=== PATIENT | female | born 1975 | race Caucasian/White ===

== ENCOUNTER → 2018-11-16 14:29 | Outpatient (CLI) | payer OTHER, MEDICAID, SELFPAY ==
--- NOTE | 2018-11-16 | DI.MRI.S_ITS ---
PROCEDURE: MR LUMBAR SPINE WO CON INDICATIONS: LUMBAR PAIN WITH SCIATICA TECHNIQUE: Noncontrast sagittal T1 spin echo and T2 fast echo, sagittal STIR, axial T1 and T2 fast spin echo through the lumbar spine. In cases with scoliosis, additional coronal T2 fast spin echo may be performed. COMPARISON: None. FINDINGS: Image quality: Excellent. Alignment and Curvature: There is normal bony alignment. Bone Marrow: Marrow is of normal overall signal. No acute vertebral body compression fractures. Spinal Cord: Conus medullaris terminates at the L1-L2 level. Visualized cord demonstrates normal signal and size. Paraspinous Soft Tissues: No paravertebral masses. T12-L1: Disc height is well-preserved. No canal stenosis or foraminal stenosis. Unremarkable facet joints. L1-L2: Normal appearance. L2-L3: Normal appearance. L3-L4: Disc height is preserved. No canal stenosis or foraminal stenosis. Mild facet hypertrophy. L4-L5: Disc height is preserved. No canal stenosis. Bilateral facet hypertrophy. Left foraminal annulus tear plus disc bulge. No neuroforaminal nerve root impingement. L5-S1: A small focal right posterior disc protrusion in the neural foramen abuts the right S1 nerve root in the right lateral recess. The right L5 nerve root exits above the disc protrusion. Mild bilateral facet hypertrophy. IMPRESSION: 1. A left foraminal annulus tear at L4-L5 may potentially result in left L4 radiculitis. 2. A small focal right posterior disc protrusion at L5-S1 may potentially result in right S1 nerve root symptoms. 3. Multilevel facet hypertrophy. Dictated by: Troy Marquez M.D. on 11/16/2018 at 16:06 Approved by: Troy Marquez M.D. on 11/16/2018 at 16:16
== END ==
PROVIDERS: PCP Family Medicine; Visit Provider Family Medicine
DX: M51.17 Intervertebral disc disorders with radiculopathy, lumbosacral region (principal)
CPT/HCPCS: 72148